=== PATIENT | male | born 1955 | race Caucasian/White ===

== ENCOUNTER 2019-05-20 16:00 | Inpatient (IN) | payer MEDICARE, MEDICAID ==
[2019-05-20 16:41] LABS: ABNORMAL IP MESSAGE 1; HEMATOCRIT 45.6 % (42.0-52.0); HEMOGLOBIN 14.6 g/dl (14.0-18.0); MEAN CORPUSCULAR HEMOGLOBIN 26.1 pg (29.0-33.0); MEAN CORPUSCULAR VOLUME 81.4 fl (82.0-101.0); MEAN PLATELET VOLUME 8.6 fl (7.4-10.4); PLATELET COUNT 343 10^3/UL (140-415); POSITIVE DIFF @See below; RED CELL DISTRIBUTION WIDTH 14.9 % (11.5-14.5)
[2019-05-20] MEDS: SODIUM CHLORIDE 0.9% 1L BAG IV* (16:45)
[2019-05-20 16:46] LABS: ADD MAN DIFF? YES
[2019-05-20] MEDS: ONDANSETRON 4 MG INJ IV ×2 (16:55→21:20)
[2019-05-20] MEDS: morphine 4 MG/ML VIAL IV (16:55)
[2019-05-20 16:59] LABS: ALANINE AMINOTRANSFERASE 234 IU/L (13-69); ALBUMIN 4.1 g/dl (3.3-4.9); ALBUMIN/GLOBULIN RATIO 0.91; ALKALINE PHOSPHATASE 923 IU/L (42-121); ANION GAP 9 (5-13); ASPARTATE AMINO TRANSFERASE 210 IU/L (15-46); BILIRUBIN,INDIRECT 1.1 mg/dl (0-1.1); BILIRUBIN,TOTAL 3.2 mg/dl (0.2-1.3); BLOOD UREA NITROGEN 24 mg/dl (7-20); CALCIUM 9.1 mg/dl (8.4-10.2); CARBON DIOXIDE 27 mmol/L (21-31); CHLORIDE 103 mmol/L (97-110); CREATININE 1.36 mg/dl (0.61-1.24); Estimated GFR 52 mL/min (>60); GLUCOSE 122 mg/dl (70-220); POTASSIUM 3.3 mmol/L (3.5-5.1); SODIUM 139 mmol/L (135-144); TOTAL PROTEIN 8.6 g/dl (6.1-8.1)
[2019-05-20 17:00] LABS: PARTIAL THROMBOPLASTIN TIME 29.4 Sec (23.0-35.0); PROTIME 12.3 Sec (11.9-14.9)
[2019-05-20] MEDS: ACETAMINOPHEN 325 MG TAB PO (17:00)
[2019-05-20] MEDS: PIPER-TAZO 3.375 GM IV (PMX) 100 ML IVPB ×2 (17:05→23:48)
[2019-05-20 17:11] LABS: ADD UMIC YES; TROPONIN-I < 0.012 ng/ml (0.000-0.120); UR ASCORBIC ACID NEGATIVE (NEGATIVE); UR BACTERIA FEW /HPF (NONE SEEN); UR BILIRUBIN (Dip) 2+ mg/dL (NEGATIVE); UR BLOOD (Dip) NEGATIVE (NEGATIVE); UR CLARITY SLIGHTLY CLOUDY (CLEAR); UR COLOR AMBER (YELLOW); UR GLUCOSE (Dip) NEGATIVE (NEGATIVE); UR KETONES (Dip) TRACE mg/dL (NEGATIVE); UR LEUKOCYTE ESTERASE (Dip) NEGATIVE Leu/ul (NEGATIVE); UR MUCUS MANY /HPF (NONE SEEN); UR NITRITE (Dip) NEGATIVE (NEGATIVE); UR RBC 3 /HPF (0-5); UR SPECIFIC GRAVITY (Dip) 1.021 (1.003-1.030); UR SQUAMOUS EPITHELIAL CELL FEW /HPF (FEW); UR TOTAL PROTEIN (Dip) 1+ mg/dl (NEGATIVE); UR UROBILINOGEN (Dip) 2+ mg/dL (NEGATIVE); UR WBC 4 /HPF (0-5)
[2019-05-20 17:26] LABS: LIPASE 104 U/L (23-300)
[2019-05-20 18:37] LABS: BAND NEUTROPHILS #M 4.2 10^3/ul (0.0-0.6); BAND NEUTROPHILS % (M) 20 % (0-4); MONOCYTE #M 0.6 10^3/ul (0.3-0.9); MONOCYTES % (M) 3 % (0-11); PLATELET ESTIMATE NORMAL; SEG NEUT #M 17.1 10^3/ul (1.6-7.5); SEGMENTED NEUTROPHILS (M) % 77 % (39-77); SMUDGE%M 1 % (0-0)
[2019-05-20 19:01] LABS: LACTIC ACID 1.3 mmol/L (0.5-2.0)
[2019-05-20] MEDS ORDERED: ACETAMINOPHEN 325 MG TAB PO (20:00)
[2019-05-20 20:21] LABS: LACTIC ACID 1.4 mmol/L (0.5-2.0)
[2019-05-20] MEDS ORDERED: HYDROmorphONE 1 MG/ML SYG (21:11)
[2019-05-20] MEDS: HYDROmorphONE 0.5 MG/0.5 ML SYG IV (21:20)
[2019-05-20] MEDS: NICARDipine HCL 30 MG CAPSULE PO (22:33)
[2019-05-20] MEDS ORDERED: ONDANSETRON 4 MG INJ IV (23:30)
[2019-05-20] MEDS ORDERED: NACL 0.9% 3 ML SYG IV (23:30)
[2019-05-20] MEDS: DEXTROSE 5%-0.45% NACL 1,000 ML IV (23:48)
[2019-05-20] MEDS: morphine 2 MG INJ IV (23:48)
[2019-05-21] MEDS: PIPER-TAZO 3.375 GM IV (PMX) 100 ML IVPB ×4 (05:24→23:51)
[2019-05-21 05:28] LABS: ADD MAN DIFF? NO
[2019-05-21 05:32] LABS: ABNORMAL IP MESSAGE 1; BASOPHIL # 0.1 10^3/ul (0.0-0.1); BASOPHILS % 0.3 % (0.0-2.0); HEMATOCRIT 42.7 % (42.0-52.0); HEMOGLOBIN 13.3 g/dl (14.0-18.0); LYMPHOCYTES # 0.5 10^3/ul (0.8-2.9); LYMPHOCYTES % 2.5 % (15.0-51.0); MEAN CORPUSCULAR HGB CONC 31.1 g/dl (32.0-37.0); MEAN CORPUSCULAR VOLUME 83.6 fl (82.0-101.0); MEAN PLATELET VOLUME 9.1 fl (7.4-10.4); MONOCYTE # 0.5 10^3/ul (0.3-0.9); MONOCYTES % 2.3 % (0.0-11.0); NEUTROPHIL # 18.5 10^3/ul (1.6-7.5); NEUTROPHILS % 94.3 % (39.0-77.0); PLATELET COUNT 288 10^3/UL (140-415); POSITIVE DIFF @See below; RED BLOOD COUNT 5.11 10^6/ul (4.70-6.10); RED CELL DISTRIBUTION WIDTH 15.5 % (11.5-14.5)
[2019-05-21 05:32] LABS: WHITE BLOOD COUNT 19.7 10^3/ul (4.8-10.8)
[2019-05-21 06:02] LABS: ALANINE AMINOTRANSFERASE 226 IU/L (13-69); ALBUMIN 3.7 g/dl (3.3-4.9); ALKALINE PHOSPHATASE 596 IU/L (42-121); ANION GAP 7 (5-13); ASPARTATE AMINO TRANSFERASE 178 IU/L (15-46); BILIRUBIN,INDIRECT 1.4 mg/dl (0-1.1); BILIRUBIN,TOTAL 5.8 mg/dl (0.2-1.3); BLOOD UREA NITROGEN 21 mg/dl (7-20); CALCIUM 8.3 mg/dl (8.4-10.2); CARBON DIOXIDE 28 mmol/L (21-31); CHLORIDE 102 mmol/L (97-110); CREATININE 0.97 mg/dl (0.61-1.24); Estimated GFR > 60 mL/min (>60); GLUCOSE 153 mg/dl (70-220); PHOSPHORUS 3.1 mg/dl (2.5-4.9); POTASSIUM 4.2 mmol/L (3.5-5.1); SODIUM 137 mmol/L (135-144); TOTAL PROTEIN 7.8 g/dl (6.1-8.1)
[2019-05-21] MEDS: ACETAMINOPHEN 1000MG/100ML IV 100 ML IVPB ×2 (06:05→17:20)
[2019-05-21] MEDS: HEPARIN 5,000 UNIT/1 ML VIAL SC ×2 (08:22→21:06)
[2019-05-21] MEDS: DEXTROSE 5%-0.45% NACL 1,000 ML IV ×2 (09:03→11:34)
[2019-05-21] MEDS: morphine 2 MG INJ IV ×2 (10:03→15:04)
[2019-05-21] MEDS ORDERED: IOHEXOL 300MG/ML 30 ML BTL (14:46)
[2019-05-21] MEDS: INDOMETHACIN 50 MG SUPP PR (15:00)
[2019-05-21] MEDS: hydrALAzine 20 MG INJ IV (15:23)
[2019-05-21] MEDS: hydrALAzine 20 MG INJ (15:24)
[2019-05-21] MEDS: LABETALOL HCL 20MG INJ (15:24)
[2019-05-21] MEDS ORDERED: hydrALAzine 20 MG INJ IV (16:00)
[2019-05-21] MEDS ORDERED: FENTAnyl 50 MCG/ML VIAL IV ×3 (16:00)
[2019-05-21] MEDS ORDERED: MEPERIDINE 25 MG INJ IV (16:00)
[2019-05-21] MEDS ORDERED: DIPHENHYDRAMINE 50 MG INJ IV (16:00)
[2019-05-21] MEDS ORDERED: ONDANSETRON 4 MG INJ IV (16:00)
[2019-05-21] MEDS ORDERED: CEFAZOLIN 1 GM INJ (16:00)
[2019-05-21] MEDS ORDERED: HYDROmorphONE 1 MG/5 ML IV SYRINGE IV ×3 (16:00)
[2019-05-21] MEDS ORDERED: LABETALOL HCL 20MG INJ IV (16:00)
[2019-05-21] MEDS ORDERED: SUCCINYLCHOLINE CHLORIDE 100 MG/5 ML SYG IV (16:04)
[2019-05-21] MEDS ORDERED: PROPOFOL 20 ML (16:04)
[2019-05-21] MEDS ORDERED: FENTAnyl 50 MCG/ML VIAL ×2 (16:04→16:17)
[2019-05-21] MEDS ORDERED: PHENYLephrine (100 MCG/ML) 10ML SYG (16:27)
[2019-05-22] MEDS: DEXTROSE 5%-0.45% NACL 1,000 ML IV ×3 (04:15→15:47)
[2019-05-22] MEDS: PIPER-TAZO 3.375 GM IV (PMX) 100 ML IVPB ×4 (06:06→23:38)
[2019-05-22] MEDS: hydrALAzine 20 MG INJ IV ×2 (08:35→20:52)
[2019-05-22] MEDS: HEPARIN 5,000 UNIT/1 ML VIAL SC ×2 (08:36→20:51)
[2019-05-22] MEDS: AMLODIPINE 5 MG TAB PO (09:50)
[2019-05-22 11:24] LABS: ADD MAN DIFF? NO
[2019-05-22 11:27] LABS: BASOPHILS % 0.2 % (0.0-2.0); EOSINOPHILS # 0.1 10^3/ul (0.0-0.5); EOSINOPHILS % 0.7 % (0.0-7.0); HEMATOCRIT 39.7 % (42.0-52.0); HEMOGLOBIN 12.4 g/dl (14.0-18.0); LYMPHOCYTES % 6.1 % (15.0-51.0); MEAN CORPUSCULAR HEMOGLOBIN 26.2 pg (29.0-33.0); MEAN CORPUSCULAR HGB CONC 31.2 g/dl (32.0-37.0); MEAN CORPUSCULAR VOLUME 83.9 fl (82.0-101.0); MEAN PLATELET VOLUME 8.9 fl (7.4-10.4); MONOCYTE # 0.7 10^3/ul (0.3-0.9); MONOCYTES % 4.4 % (0.0-11.0); NEUTROPHIL # 14.4 10^3/ul (1.6-7.5); NEUTROPHILS % 87.9 % (39.0-77.0); PLATELET COUNT 198 10^3/UL (140-415); RED BLOOD COUNT 4.73 10^6/ul (4.70-6.10); RED CELL DISTRIBUTION WIDTH 15.7 % (11.5-14.5)
[2019-05-22 11:27] LABS: WHITE BLOOD COUNT 16.4 10^3/ul (4.8-10.8)
[2019-05-22 11:46] LABS: ALANINE AMINOTRANSFERASE 129 IU/L (13-69); ALBUMIN 3.3 g/dl (3.3-4.9); ALBUMIN/GLOBULIN RATIO 0.89; ALKALINE PHOSPHATASE 377 IU/L (42-121); ANION GAP 6 (5-13); ASPARTATE AMINO TRANSFERASE 58 IU/L (15-46); BILIRUBIN,INDIRECT 0.8 mg/dl (0-1.1); BILIRUBIN,TOTAL 2.5 mg/dl (0.2-1.3); BLOOD UREA NITROGEN 22 mg/dl (7-20); CALCIUM 8.6 mg/dl (8.4-10.2); CARBON DIOXIDE 34 mmol/L (21-31); CHLORIDE 99 mmol/L (97-110); CREATININE 1.01 mg/dl (0.61-1.24); Estimated GFR > 60 mL/min (>60); GLUCOSE 123 mg/dl (70-220); POTASSIUM 4.3 mmol/L (3.5-5.1); SODIUM 139 mmol/L (135-144)
[2019-05-23] MEDS: PIPER-TAZO 3.375 GM IV (PMX) 100 ML IVPB (05:39)
[2019-05-23 06:05] LABS: ADD MAN DIFF? NO
[2019-05-23 06:21] LABS: WHITE BLOOD COUNT 11.4 10^3/ul (4.8-10.8)
[2019-05-23 06:21] LABS: BASOPHILS % 0.2 % (0.0-2.0); EOSINOPHILS # 0.1 10^3/ul (0.0-0.5); EOSINOPHILS % 1.1 % (0.0-7.0); HEMATOCRIT 38.9 % (42.0-52.0); HEMOGLOBIN 12.2 g/dl (14.0-18.0); LYMPHOCYTES # 1.4 10^3/ul (0.8-2.9); LYMPHOCYTES % 12.2 % (15.0-51.0); MEAN CORPUSCULAR HEMOGLOBIN 25.8 pg (29.0-33.0); MEAN CORPUSCULAR HGB CONC 31.4 g/dl (32.0-37.0); MEAN CORPUSCULAR VOLUME 82.2 fl (82.0-101.0); MEAN PLATELET VOLUME 9.7 fl (7.4-10.4); MONOCYTE # 0.9 10^3/ul (0.3-0.9); MONOCYTES % 7.7 % (0.0-11.0); NEUTROPHIL # 8.9 10^3/ul (1.6-7.5); NEUTROPHILS % 78.3 % (39.0-77.0); PLATELET COUNT 230 10^3/UL (140-415); RED BLOOD COUNT 4.73 10^6/ul (4.70-6.10); RED CELL DISTRIBUTION WIDTH 15.5 % (11.5-14.5)
[2019-05-23 07:07] LABS: ANION GAP 6 (5-13); BLOOD UREA NITROGEN 16 mg/dl (7-20); CALCIUM 8.5 mg/dl (8.4-10.2); CARBON DIOXIDE 29 mmol/L (21-31); CHLORIDE 101 mmol/L (97-110); CREATININE 0.85 mg/dl (0.61-1.24); Estimated GFR > 60 mL/min (>60); GLUCOSE 105 mg/dl (70-220); POTASSIUM 3.7 mmol/L (3.5-5.1); SODIUM 136 mmol/L (135-144)
[2019-05-23] MEDS: AMLODIPINE 5 MG TAB PO (08:22)
[2019-05-23] MEDS: HEPARIN 5,000 UNIT/1 ML VIAL SC ×2 (08:22→22:08)
[2019-05-23] MEDS: hydrALAzine 20 MG INJ IV ×3 (10:21→22:17)
[2019-05-23] MEDS: ERTAPENEM SODIUM 1 GM in SOD CHLORIDE 0.9% 100 ML IVPB (13:40)
[2019-05-24] MEDS: hydrALAzine 20 MG INJ IV ×2 (03:38→20:33)
[2019-05-24 06:09] LABS: ADD MAN DIFF? NO
[2019-05-24 06:14] LABS: WHITE BLOOD COUNT 7.6 10^3/ul (4.8-10.8)
[2019-05-24 06:14] LABS: BASOPHILS % 0.4 % (0.0-2.0); EOSINOPHILS # 0.1 10^3/ul (0.0-0.5); EOSINOPHILS % 1.8 % (0.0-7.0); HEMOGLOBIN 12.4 g/dl (14.0-18.0); LYMPHOCYTES # 1.2 10^3/ul (0.8-2.9); LYMPHOCYTES % 16.2 % (15.0-51.0); MEAN CORPUSCULAR HEMOGLOBIN 25.6 pg (29.0-33.0); MEAN CORPUSCULAR HGB CONC 31.8 g/dl (32.0-37.0); MEAN CORPUSCULAR VOLUME 80.6 fl (82.0-101.0); MEAN PLATELET VOLUME 9.5 fl (7.4-10.4); MONOCYTE # 0.9 10^3/ul (0.3-0.9); MONOCYTES % 12.3 % (0.0-11.0); NEUTROPHIL # 5.2 10^3/ul (1.6-7.5); NEUTROPHILS % 68.5 % (39.0-77.0); PLATELET COUNT 251 10^3/UL (140-415); RED BLOOD COUNT 4.84 10^6/ul (4.70-6.10); RED CELL DISTRIBUTION WIDTH 15.5 % (11.5-14.5)
[2019-05-24 06:49] LABS: ALANINE AMINOTRANSFERASE 70 IU/L (13-69); ALBUMIN 2.9 g/dl (3.3-4.9); ALKALINE PHOSPHATASE 329 IU/L (42-121); ASPARTATE AMINO TRANSFERASE 35 IU/L (15-46); BILIRUBIN,INDIRECT 1.1 mg/dl (0-1.1); BILIRUBIN,TOTAL 1.1 mg/dl (0.2-1.3)
[2019-05-24 07:00] LABS: ANION GAP 5 (5-13); BLOOD UREA NITROGEN 16 mg/dl (7-20); CALCIUM 8.6 mg/dl (8.4-10.2); CARBON DIOXIDE 30 mmol/L (21-31); CHLORIDE 101 mmol/L (97-110); CREATININE 0.77 mg/dl (0.61-1.24); Estimated GFR > 60 mL/min (>60); GLUCOSE 112 mg/dl (70-220); POTASSIUM 3.7 mmol/L (3.5-5.1); SODIUM 136 mmol/L (135-144)
[2019-05-24] MEDS: HEPARIN 5,000 UNIT/1 ML VIAL SC ×2 (09:13→20:32)
[2019-05-24] MEDS: AMLODIPINE 5 MG TAB PO ×2 (09:13→22:29)
[2019-05-24] MEDS: ERTAPENEM SODIUM 1 GM in SOD CHLORIDE 0.9% 100 ML IVPB (15:29)
[2019-05-24] MEDS ORDERED: PANTOPRAZOLE (EC) 40 MG TAB PO (22:25)
[2019-05-24] MEDS: PANTOPRAZOLE (EC) 40 MG TAB PO (22:29)
[2019-05-25 05:39] LABS: ADD MAN DIFF? NO
[2019-05-25 05:48] LABS: BASOPHIL # 0.1 10^3/ul (0.0-0.1); EOSINOPHILS # 0.2 10^3/ul (0.0-0.5); EOSINOPHILS % 3.9 % (0.0-7.0); HEMATOCRIT 37.2 % (42.0-52.0); HEMOGLOBIN 11.8 g/dl (14.0-18.0); LYMPHOCYTES # 1.6 10^3/ul (0.8-2.9); LYMPHOCYTES % 26.1 % (15.0-51.0); MEAN CORPUSCULAR HGB CONC 31.7 g/dl (32.0-37.0); MEAN CORPUSCULAR VOLUME 81.9 fl (82.0-101.0); MEAN PLATELET VOLUME 9.4 fl (7.4-10.4); MONOCYTE # 0.9 10^3/ul (0.3-0.9); MONOCYTES % 14.7 % (0.0-11.0); NEUTROPHIL # 3.3 10^3/ul (1.6-7.5); PLATELET COUNT 281 10^3/UL (140-415); RED BLOOD COUNT 4.54 10^6/ul (4.70-6.10); RED CELL DISTRIBUTION WIDTH 15.2 % (11.5-14.5)
[2019-05-25 05:48] LABS: WHITE BLOOD COUNT 6.2 10^3/ul (4.8-10.8)
[2019-05-25 06:13] LABS: ALANINE AMINOTRANSFERASE 81 IU/L (13-69); ALBUMIN 3.1 g/dl (3.3-4.9); ALBUMIN/GLOBULIN RATIO 0.91; ALKALINE PHOSPHATASE 292 IU/L (42-121); ANION GAP 6 (5-13); ASPARTATE AMINO TRANSFERASE 58 IU/L (15-46); BILIRUBIN,INDIRECT 0.8 mg/dl (0-1.1); BILIRUBIN,TOTAL 0.8 mg/dl (0.2-1.3); BLOOD UREA NITROGEN 17 mg/dl (7-20); CALCIUM 8.5 mg/dl (8.4-10.2); CARBON DIOXIDE 30 mmol/L (21-31); CHLORIDE 101 mmol/L (97-110); CREATININE 0.82 mg/dl (0.61-1.24); Estimated GFR > 60 mL/min (>60); GLUCOSE 102 mg/dl (70-220); POTASSIUM 3.5 mmol/L (3.5-5.1); SODIUM 137 mmol/L (135-144); TOTAL PROTEIN 6.5 g/dl (6.1-8.1)
[2019-05-25 06:14] LABS: CHOL/HDL RATIO 10.5 RATIO; CHOLESTEROL 211 mg/dl (100-200); HDL CHOLESTEROL 20 mg/dl (30-78); LDL CHOLESTEROL,CALCULATED 147 mg/dl; MAGNESIUM 2.1 mg/dl (1.7-2.5); TRIGLYCERIDES 221 mg/dl (0-149)
[2019-05-25 06:15] LABS: ALANINE AMINOTRANSFERASE 82 IU/L (13-69); ALBUMIN 3.2 g/dl (3.3-4.9); ALKALINE PHOSPHATASE 293 IU/L (42-121); ASPARTATE AMINO TRANSFERASE 56 IU/L (15-46); BILIRUBIN,INDIRECT 0.8 mg/dl (0-1.1); BILIRUBIN,TOTAL 0.8 mg/dl (0.2-1.3); TOTAL PROTEIN 6.4 g/dl (6.1-8.1)
[2019-05-25] MEDS: PANTOPRAZOLE (EC) 40 MG TAB PO (06:24)
[2019-05-25 06:27] LABS: FREE T4 (FREE THYROXINE) 1.75 ng/dl (0.78-2.44)
[2019-05-25 06:56] LABS: HEMOGLOBIN A1C 5.3 % (0-5.9)
[2019-05-25] MEDS: HEPARIN 5,000 UNIT/1 ML VIAL SC ×2 (09:16→20:36)
[2019-05-25] MEDS: AMLODIPINE 5 MG TAB PO ×2 (09:17→21:30)
[2019-05-25] MEDS ORDERED: VANCOMYCIN IV PER PHARMACY XX (10:30)
[2019-05-25] MEDS ORDERED: ZYVOX 600 MG TAB PO (11:30)
[2019-05-25] MEDS: VANCOMYCIN HCL 2 GM in SOD CHLORIDE 0.9% 500 ML IVPB (12:54)
[2019-05-25] MEDS: ERTAPENEM SODIUM 1 GM in SOD CHLORIDE 0.9% 100 ML IVPB (18:40)
[2019-05-25] MEDS: hydrALAzine 20 MG INJ IV (20:47)
[2019-05-26] MEDS: VANCOMYCIN 1 GM 250 ML IVPB (01:16)
[2019-05-26] MEDS: PANTOPRAZOLE (EC) 40 MG TAB PO (05:50)
[2019-05-26 06:10] LABS: ADD MAN DIFF? NO
[2019-05-26 06:12] LABS: WHITE BLOOD COUNT 6.6 10^3/ul (4.8-10.8)
[2019-05-26 06:12] LABS: BASOPHIL # 0.1 10^3/ul (0.0-0.1); BASOPHILS % 0.9 % (0.0-2.0); EOSINOPHILS # 0.3 10^3/ul (0.0-0.5); EOSINOPHILS % 4.9 % (0.0-7.0); HEMOGLOBIN 11.4 g/dl (14.0-18.0); LYMPHOCYTES # 1.9 10^3/ul (0.8-2.9); LYMPHOCYTES % 29.5 % (15.0-51.0); MEAN CORPUSCULAR HEMOGLOBIN 26.1 pg (29.0-33.0); MEAN CORPUSCULAR HGB CONC 31.7 g/dl (32.0-37.0); MEAN CORPUSCULAR VOLUME 82.4 fl (82.0-101.0); MEAN PLATELET VOLUME 9.1 fl (7.4-10.4); MONOCYTE # 0.9 10^3/ul (0.3-0.9); MONOCYTES % 12.9 % (0.0-11.0); NEUTROPHIL # 3.3 10^3/ul (1.6-7.5); NEUTROPHILS % 49.8 % (39.0-77.0); PLATELET COUNT 309 10^3/UL (140-415); RED BLOOD COUNT 4.37 10^6/ul (4.70-6.10); RED CELL DISTRIBUTION WIDTH 15.1 % (11.5-14.5)
[2019-05-26 06:46] LABS: MAGNESIUM 2.1 mg/dl (1.7-2.5)
[2019-05-26 06:46] LABS: PHOSPHORUS 4.1 mg/dl (2.5-4.9)
[2019-05-26 07:08] LABS: ALANINE AMINOTRANSFERASE 115 IU/L (13-69); ALKALINE PHOSPHATASE 256 IU/L (42-121); ANION GAP 6 (5-13); ASPARTATE AMINO TRANSFERASE 71 IU/L (15-46); BILIRUBIN,INDIRECT 0.6 mg/dl (0-1.1); BILIRUBIN,TOTAL 0.6 mg/dl (0.2-1.3); BLOOD UREA NITROGEN 17 mg/dl (7-20); CALCIUM 8.3 mg/dl (8.4-10.2); CARBON DIOXIDE 30 mmol/L (21-31); CHLORIDE 102 mmol/L (97-110); CREATININE 0.86 mg/dl (0.61-1.24); Estimated GFR > 60 mL/min (>60); GLUCOSE 102 mg/dl (70-220); POTASSIUM 3.7 mmol/L (3.5-5.1); SODIUM 138 mmol/L (135-144); TOTAL PROTEIN 6.3 g/dl (6.1-8.1)
[2019-05-26] MEDS: HEPARIN 5,000 UNIT/1 ML VIAL SC ×2 (08:31→21:10)
[2019-05-26] MEDS: AMLODIPINE 5 MG TAB PO ×2 (08:32→21:09)
[2019-05-26] MEDS: ZYVOX 600 MG TAB PO ×2 (11:46→21:09)
[2019-05-26] MEDS: ERTAPENEM SODIUM 1 GM in SOD CHLORIDE 0.9% 100 ML IVPB (17:28)
[2019-05-27] MEDS: PANTOPRAZOLE (EC) 40 MG TAB PO (05:44)
[2019-05-27 06:31] LABS: ADD MAN DIFF? NO
[2019-05-27 06:35] LABS: WHITE BLOOD COUNT 7.1 10^3/ul (4.8-10.8)
[2019-05-27 06:35] LABS: BASOPHIL # 0.1 10^3/ul (0.0-0.1); BASOPHILS % 0.8 % (0.0-2.0); EOSINOPHILS # 0.5 10^3/ul (0.0-0.5); EOSINOPHILS % 6.9 % (0.0-7.0); HEMATOCRIT 37.3 % (42.0-52.0); HEMOGLOBIN 11.6 g/dl (14.0-18.0); LYMPHOCYTES % 27.6 % (15.0-51.0); MEAN CORPUSCULAR HEMOGLOBIN 25.4 pg (29.0-33.0); MEAN CORPUSCULAR HGB CONC 31.1 g/dl (32.0-37.0); MEAN CORPUSCULAR VOLUME 81.6 fl (82.0-101.0); MEAN PLATELET VOLUME 9.1 fl (7.4-10.4); MONOCYTE # 0.8 10^3/ul (0.3-0.9); MONOCYTES % 11.3 % (0.0-11.0); NEUTROPHIL # 3.6 10^3/ul (1.6-7.5); NEUTROPHILS % 51.1 % (39.0-77.0); PLATELET COUNT 335 10^3/UL (140-415); RED BLOOD COUNT 4.57 10^6/ul (4.70-6.10); RED CELL DISTRIBUTION WIDTH 15.1 % (11.5-14.5)
[2019-05-27 07:04] LABS: MAGNESIUM 2.3 mg/dl (1.7-2.5)
[2019-05-27 07:12] LABS: ANION GAP 4 (5-13); BLOOD UREA NITROGEN 18 mg/dl (7-20); CALCIUM 8.4 mg/dl (8.4-10.2); CARBON DIOXIDE 32 mmol/L (21-31); CHLORIDE 101 mmol/L (97-110); CREATININE 0.85 mg/dl (0.61-1.24); Estimated GFR > 60 mL/min (>60); GLUCOSE 92 mg/dl (70-220); POTASSIUM 4.1 mmol/L (3.5-5.1); SODIUM 137 mmol/L (135-144)
[2019-05-27] MEDS: ZYVOX 600 MG TAB PO ×2 (08:26→20:39)
[2019-05-27] MEDS: AMLODIPINE 5 MG TAB PO ×2 (08:27→20:39)
[2019-05-27] MEDS: HEPARIN 5,000 UNIT/1 ML VIAL SC ×2 (08:27→20:41)
[2019-05-27] MEDS: ERTAPENEM SODIUM 1 GM in SOD CHLORIDE 0.9% 100 ML IVPB (16:44)
[2019-05-28] MEDS: PANTOPRAZOLE (EC) 40 MG TAB PO (05:19)
[2019-05-28 05:59] LABS: ADD MAN DIFF? NO
[2019-05-28 06:06] LABS: BASOPHIL # 0.1 10^3/ul (0.0-0.1); BASOPHILS % 0.9 % (0.0-2.0); EOSINOPHILS # 0.5 10^3/ul (0.0-0.5); EOSINOPHILS % 7.5 % (0.0-7.0); HEMATOCRIT 37.7 % (42.0-52.0); HEMOGLOBIN 11.8 g/dl (14.0-18.0); LYMPHOCYTES # 2.2 10^3/ul (0.8-2.9); LYMPHOCYTES % 32.5 % (15.0-51.0); MEAN CORPUSCULAR HEMOGLOBIN 25.8 pg (29.0-33.0); MEAN CORPUSCULAR HGB CONC 31.3 g/dl (32.0-37.0); MEAN CORPUSCULAR VOLUME 82.5 fl (82.0-101.0); MEAN PLATELET VOLUME 8.9 fl (7.4-10.4); MONOCYTE # 0.7 10^3/ul (0.3-0.9); MONOCYTES % 10.8 % (0.0-11.0); NEUTROPHIL # 3.1 10^3/ul (1.6-7.5); NEUTROPHILS % 45.4 % (39.0-77.0); PLATELET COUNT 393 10^3/UL (140-415); RED BLOOD COUNT 4.57 10^6/ul (4.70-6.10); RED CELL DISTRIBUTION WIDTH 15.1 % (11.5-14.5)
[2019-05-28 06:06] LABS: WHITE BLOOD COUNT 6.8 10^3/ul (4.8-10.8)
[2019-05-28 06:19] LABS: ALANINE AMINOTRANSFERASE 118 IU/L (13-69); ALBUMIN/GLOBULIN RATIO 0.83; ALKALINE PHOSPHATASE 231 IU/L (42-121); ANION GAP 5 (5-13); ASPARTATE AMINO TRANSFERASE 54 IU/L (15-46); BILIRUBIN,INDIRECT 0.3 mg/dl (0-1.1); BILIRUBIN,TOTAL 0.3 mg/dl (0.2-1.3); BLOOD UREA NITROGEN 19 mg/dl (7-20); CALCIUM 8.5 mg/dl (8.4-10.2); CARBON DIOXIDE 33 mmol/L (21-31); CHLORIDE 100 mmol/L (97-110); CREATININE 0.93 mg/dl (0.61-1.24); Estimated GFR > 60 mL/min (>60); GLUCOSE 97 mg/dl (70-220); POTASSIUM 4.3 mmol/L (3.5-5.1); SODIUM 138 mmol/L (135-144); TOTAL PROTEIN 6.6 g/dl (6.1-8.1)
[2019-05-28 07:11] LABS: PHOSPHORUS 4.4 mg/dl (2.5-4.9)
[2019-05-28 07:11] LABS: MAGNESIUM 2.3 mg/dl (1.7-2.5)
[2019-05-28] MEDS: ZYVOX 600 MG TAB PO (08:41)
[2019-05-28] MEDS: AMLODIPINE 5 MG TAB PO (08:42)
[2019-05-28] MEDS: HEPARIN 5,000 UNIT/1 ML VIAL SC (08:43)
[2019-05-28] MEDS: ERTAPENEM SODIUM 1 GM in SOD CHLORIDE 0.9% 100 ML IVPB (16:45)
== END 2019-05-28 19:00 | disposition home health service (06) | DRG 872 ==
LOC: E/R 16:00 → PP2 19:33
PROC: 0FPB8DZ Removal of Intraluminal Device from Hepatobiliary Duct, Via Natural or Artificial Opening Endoscopic (ICD-10-PCS; principal; 2019-05-21 15:00)
PROC: 0F798DZ Dilation of Common Bile Duct with Intraluminal Device, Via Natural or Artificial Opening Endoscopic (ICD-10-PCS; 2019-05-21 15:00)
PROC: 0FC98ZZ Extirpation of Matter from Common Bile Duct, Via Natural or Artificial Opening Endoscopic (ICD-10-PCS; 2019-05-21 15:00)
PROC: 0FC88ZZ Extirpation of Matter from Cystic Duct, Via Natural or Artificial Opening Endoscopic (ICD-10-PCS; 2019-05-21 15:00)
PROC: BF10YZZ Fluoroscopy of Bile Ducts using Other Contrast (ICD-10-PCS; 2019-05-21 15:00)
DX: A41.9 Sepsis, unspecified organism (principal); Z68.41 Body mass index [BMI] 40.0-44.9, adult; T85.590A Other mechanical complication of bile duct prosthesis, initial encounter; K80.30 Calculus of bile duct with cholangitis, unspecified, without obstruction; K80.70 Calculus of gallbladder and bile duct without cholecystitis without obstruction; R74.0 Nonspecific elevation of levels of transaminase and lactic acid dehydrogenase [LDH]; E66.9 Obesity, unspecified; Y84.8 Other medical procedures as the cause of abnormal reaction of the patient, or of later complication, without mention of misadventure at the time of the procedure; Y92.019 Unspecified place in single-family (private) house as the place of occurrence of the external cause; I10 Essential (primary) hypertension; B96.20 Unspecified Escherichia coli [E. coli] as the cause of diseases classified elsewhere; B95.2 Enterococcus as the cause of diseases classified elsewhere
CPT/HCPCS: 36415; 71045; 74176; 74181; 74330; 76705; 80048; 80053; 80061; 80076; 81001; 82962; 83036; 83605; 83690; 83735; 84100; 84439; 84443; 84484; 85025; 85610; 85730; 87040-91; 87045; 87086; 93005; 96374; 96375; 99285-25